=== PATIENT | female | born 1995 | race Caucasian/White ===

== ENCOUNTER 2017-05-30 03:23 | Emergency (ER) | payer SELFPAY ==
[~2017-05-30] VITALS: Ht 160 cm; Wt 68.0 kg
[2017-05-30] MEDS ORDERED: SODIUM CHLORIDE 0.9% 1000ML 1,000 ML IV SCH (04:00)
[2017-05-30] MEDS ORDERED: ACETAMINOPHEN 325 MG TAB PO ONE (04:00)
[2017-05-30] MEDS ORDERED: NEXPLANON68 MG (04:08)
[2017-05-30 05:18] VITALS: BP 108/67
== END 2017-05-30 05:20 | disposition home or self-care (01) ==
LOC: FSED 03:23
DX: R55 Syncope and collapse (principal); F14.10 Cocaine abuse, uncomplicated; F10.10 Alcohol abuse, uncomplicated; F12.10 Cannabis abuse, uncomplicated; F13.10 Sedative, hypnotic or anxiolytic abuse, uncomplicated
CPT/HCPCS: 70450; 80307; 81003; 81025; 93005; 99283